=== PATIENT | female | born 1995 | race African-American/Black ===

== ENCOUNTER 2022-08-26 23:35 | Emergency (ER) | payer BC ==
[~2022-08-26] VITALS: Ht 172.7 cm; Wt 108.0 kg
[2022-08-27 00:01] VITALS: BP 130/83
--- NOTE | 2022-08-27 01:00 | NUR ---
Dr. Osuna at bedside assessing patient.
[2022-08-27] MEDS ORDERED: NACL 0.9% 1,000 ML IV ONE (01:15)
[2022-08-27 01:30] LABS: BASOPHILS # (AUTO) 0.1 K/uL (0.00-0.22); BASOPHILS % (AUTO) 1.1 % (0.0-2.0); EOSINOPHILS % (AUTO) 0.6 % (0.0-4.0); HEMOGLOBIN 12.1 g/dL (12.0-16.0); LYMPHOCYTES # (AUTO) 2.7 K/uL (2.5-16.5); LYMPHOCYTES % (AUTO) 44.3 % (20.5-51.1); MEAN CORPUSCULAR HEMOGLOBIN 29 pg (27-31); MEAN CORPUSCULAR HGB CONC 34 g/dL (33-37); MEAN CORPUSCULAR VOLUME 87.1 fL (80-94); MONOCYTES # (AUTO) 0.8 K/uL (0.8-1.0); MONOCYTES % (AUTO) 13.9 % (1.7-9.3); NEUTROPHILS # (AUTO) 2.4 K/uL (1.8-7.7); NEUTROPHILS % (AUTO) 40.1 % (42.2-75.2); PLATELET COUNT (AUTO) 214 K/uL (140-450); RED BLOOD CELL COUNT(AUTO) 4.14 MIL/uL (4.20-5.40); RED CELL DISTRIBUTION WIDTH 13.6 % (11.6-13.7); WHITE BLOOD COUNT (AUTO) 6.1 K/uL (4.8-10.8)
[2022-08-27 01:30] LABS: APPEARANCE,URINE CLEAR (CLEAR); BILIRUBIN,URINE NEGATIVE (NEGATIVE); BLOOD, URINE NEGATIVE (NEGATIVE); COLOR,URINE DARK YELLOW (YELLOW); LEUKOCYTE ESTERASE ,URINE NEGATIVE (NEGATIVE); NITRITE, URINE NEGATIVE (NEGATIVE); UGLUCOSE NEGATIVE (NEGATIVE)
[2022-08-27 01:47] LABS: ALBUMIN 2.9 g/dL (3.4-5.0); ANION GAP 12.9 (8-16); CARBON DIOXIDE 24.5 mmol/L (21-32); CREATININE 0.8 mg/dL (0.6-1.3); POTASSIUM 3.4 mmol/L (3.5-5.1); TOTAL BILIRUBIN 0.2 mg/dL (0.0-1.0)
[2022-08-27] MEDS ORDERED: KETOROLAC 30 MG/ML VIAL IVP ONE (02:10)
--- NOTE | 2022-08-27 03:34 | NUR ---
Patient resting in bed, A/Ox4, chest rise and fall symmetrical, no c/o pain at this time. Addendum: 08/27/22 at 0407 by [id number] Patient resting in bed, A/Ox4, chest rise and fall symmetrical, IV medication infusing, no c/o pain at this time.
--- NOTE | 2022-08-27 03:49 | NUR ---
Patient informed of DC instructions. Patient verbalized understanding and stated, "I want to wait until all the fluid is done."
--- NOTE | 2022-08-27 03:55 | NUR ---
Patient asked about results of respiratory panel. Patient verbally informed of lab's estimated time of results being two days. Patient verbalized understanding, no further questions.
--- NOTE | 2022-08-27 04:07 | NUR ---
Patient resting in bed, A/Ox4, chest rise and fall symmetrical, IV medication infusing, no c/o pain at this time.
--- NOTE | 2022-08-27 04:24 | NUR ---
IV fluids completed infusing.
[2022-08-27 04:25] VITALS: BP 124/85
--- NOTE | 2022-08-27 04:25 | NUR ---
Patient discharged with v/s stable. Written and verbal after care instructions given and explained. Patient verbalized understanding. Ambulatory with steady gait. All questions addressed prior to discharge. Advised to follow up with PMD.
== END 2022-08-27 04:27 | disposition home or self-care (01) ==
LOC: MED 23:35
DX: R53.1 Weakness (principal); R51.9 Headache, unspecified; R50.9 Fever, unspecified
CPT/HCPCS: 36415; 80053; 81003; 81025; 85025; 93005; 96360; 99284; J7030; J1885